=== PATIENT | male | born 1970 | race Caucasian/White ===

== ENCOUNTER 2017-03-07 14:29 | Emergency (ER) | payer OTHER ==
[~2017-03-07] VITALS: Ht 172.7 cm; Wt 110.0 kg
[2017-03-07 14:58] LABS: EOSINOPHIL (%) 7.1 % (0-5); EOSINOPHIL COUNT 0.9 K/uL (0-0.3); HEMATOCRIT 43.5 % (38.0-50.0); IMMATURE GRANULOCYTE (%) 0.8 % (0.0-0.7); IMMATURE GRANULOCYTE COUNT 0.1 K/uL; INSTRUMENT ABS NEUTROPHIL CT 8.6 K/uL; LYMPHOCYTE COUNT 1.3 K/uL (1.0-2.8); MCH 29.2 PG (29.0-34.0); MCHC 32.9 G/DL (30.0-36.0); MCV 88.8 FL (86-99); MEAN PLAT.VOLUME 9.4 uM^3 (9.0-12.4); MONOCYTE (%) 10.5 % (3-12); MONOCYTE COUNT 1.3 K/uL (0-0.8); NEUTROPHIL (%) 70.7 % (45-76); NEUTROPHIL COUNT 8.6 K/uL (1.8-6.4); PLATELET COUNT 324 K/uL (156-360); RBC DIS.WIDTH-CV 15.1 % (11.8-14.6); RBC DIS.WIDTH-SD 49.2 % (39-53); WHITE BLOOD COUNT 12.1 K/uL (4.1-10.2)
[2017-03-07 15:06] LABS: CHLORIDE 100 mEq/L (99-109); POTASSIUM 3.9 mEq/L (3.7-5.4); SODIUM 137 mEq/L (136-147)
[2017-03-07 15:08] LABS: GLUCOSE 101 mg/dL (70-99)
[2017-03-07 15:09] LABS: ANION GAP 12 MEQ/L (2-14)
[2017-03-07 15:12] LABS: GFR ESTIMATE (CALCULATED) > 59 mL/min/
[2017-03-07 15:13] LABS: UREA NITROGEN (BUN) 17 mg/dL (9-23)
[2017-03-07 15:16] LABS: ERTH.SED.RATE 48 MM/HR (0-15)
[2017-03-07 15:44] LABS: C-REACTIVE PROTEIN 167.8 MG/L (0-10)
[2017-03-07] MEDS ORDERED: VIBRAMYCIN100 MG PO (17:10)
[2017-03-07 17:32] VITALS: BP 119/69
== END 2017-03-07 17:33 | disposition home or self-care (01) ==
LOC: EME 14:29
PROVIDERS: Physician Assistant
DX: L03.116 Cellulitis of left lower limb (principal); T81.4XXA Infection following a procedure, initial encounter; I10 Essential (primary) hypertension; Z96.652 Presence of left artificial knee joint; Y83.8 Other surgical procedures as the cause of abnormal reaction of the patient, or of later complication, without mention of misadventure at the time of the procedure
CPT/HCPCS: 73564; 80048; 83605; 83630; 85025; 85651; 86140; 87040; 87493; 87506; 93971; 99281; 99285; J7030